=== PATIENT | female | born 1975 | race Hispanic/Latino ===

== ENCOUNTER → 2023-10-19 | Outpatient (CLI) | payer MEDICAID ==
[~2023-10-19] MED LIST: LEVO500T2 PO
== END | disposition home or self-care (01) ==
LOC: RAH 14:28
PROVIDERS: ATTEND Family Medicine
DX: J20.9 Acute bronchitis, unspecified (principal); R05.9 Cough, unspecified; M47.815 Spondylosis without myelopathy or radiculopathy, thoracolumbar region
CPT/HCPCS: 71046